=== PATIENT | female | born 1990 | race Asian ===

== ENCOUNTER 2019-09-13 05:26 | Inpatient (IN) ==
[2019-09-13] MEDS ORDERED: LACTATED RINGERS 1,000 ML IV SCH (06:00)
[2019-09-13 06:09] LABS: Basophils # 0.1 10*3/uL (0.0-0.2); Eosinophils # 0.1 10*3/uL (0.0-0.87); Hematocrit 39.7 VOL% (35.7-47.0); Hemoglobin 13.2 GM/DL (12.0-16.0); Immature Granulocytes % 8.4 %; Immature Granulocytes Absolute 0.73 #; Lymphocytes # 1.8 10*3/uL (1.4-4.0); Lymphocytes % 20.6 % (21.3-54.2); Mean Corpuscular HGB Conc 33.2 GM/DL (32-36); Mean Corpuscular Volume 92.5 FL (87-102); Monocytes % 5.8 % (1.7-12.7); Neutrophils % 63.2 % (38.7-73.9); Platelet Count 244 T/CUMM (130-400); Red Blood Count 4.29 MC/CUMM (3.8-5.5); White Blood Count 8.7 T/CUMM (4-12)
[2019-09-13 06:30] LABS: Albumin 2.6 G/DL (3.4-5.0); Bilirubin,Total 0.6 MG/DL (0.2-1.0); Calcium 8.9 MG/DL (8.5-10.1); Osmolality,Calculated 266.2 MOS/KG (273-304); Total Protein 7.1 G/DL (6.4-8.3)
[2019-09-13 06:32] LABS: Eosinophils 3 % (0-10); Lymphocytes 10 % (20-55); Platelet Estimate Adequate; Segmented Neutrophils 82 % (50-85); Total Cells Counted 100
[2019-09-13 06:33] LABS: Hypochromasia Slight
[2019-09-13] MEDS ORDERED: BUPIVACAINE SPINAL 0.75% 2 ML AMP SPINAL ONE (06:47)
[2019-09-13] MEDS ORDERED: BUPIVACAINE MPF 0.5% /EPI 30 ML VIAL ONE (06:47)
[2019-09-13] MEDS ORDERED: LACTATED RINGERS 1,000 ML IV ONE ×2 (06:48→07:15)
[2019-09-13] MEDS ORDERED: PHENYLEPHRINE 1 MG/10 ML SYRINGE IV ONE ×2 (06:48→09:07)
[2019-09-13] MEDS ORDERED: MORPHINE 10 MG/10 ML VIAL ONE (06:48)
[2019-09-13] MEDS ORDERED: METOCLOPRAMIDE 10 MG/2 ML VIAL ONE (06:48)
[2019-09-13] MEDS ORDERED: SODIUM CHLORIDE 0.9% 100 ML IV ONE (06:48)
[2019-09-13] MEDS ORDERED: ONDANSETRON 4 MG/2 ML VIAL ONE (06:48)
[2019-09-13] MEDS ORDERED: CITRIC ACID/SODIUM CITRATE 30 ML UDCUP PO ONE (07:00)
[2019-09-13] MEDS ORDERED: OXYTOCIN/LR 20 UNIT/1,000 ML BAG IV ONE ×3 (07:00→09:22)
[2019-09-13] MEDS ORDERED: FAMOTIDINE 20 MG/2 ML VIAL IV ONE (07:00)
[2019-09-13] MEDS ORDERED: ceFAZolin 2,000 MG in PREMIX 1 EACH IV ONE (07:00)
[2019-09-13] MEDS ORDERED: miSOPROStoL 200 MCG TABLET ONE (07:48)
[2019-09-13] MEDS ORDERED: TRANEXAMIC ACID 1,000 MG/10 ML VIAL ONE (07:48)
[2019-09-13] MEDS ORDERED: CARBOPROST TROMETHAMINE 250 MCG/ML AMP IM ONE (07:49)
[2019-09-13] MEDS ORDERED: METHYLERGONOVINE 0.2 MG/1 ML AMP ONE (07:49)
[2019-09-13 08:17] LABS: Cord Venous Blood HCO3 23.8 MMOL/L; Cord Venous Blood PCO2 46.1 MMHG; Cord Venous Blood PO2 33.6 MMHG
[2019-09-13 08:22] LABS: Apearance,Urine CLEAR (Clear); Bilirubin,Urine Negative (Negative); Blood, Urine Negative (Negative); Glucose,Urine (UA) Negative (Negative); Ketones,Urine 20 mg/dL (Negative); Mucus,Urine Occasional /LPF (Occasional); Nitrite,Urine Negative (Negative); Protein,Urine Negative; RBC,Urine 3 /HPF (0-4); Urine Color Yellow (Yellow); Urine Specific Gravity 1.014 (1.001-1.035); Urine Urobilinogen < 2.0 EU/DL (0.2-1.0); WBC,Urine <1 /HPF (0-6)
[2019-09-13] MEDS ORDERED: CALCIUM CHLORIDE 1,000 MG/10 ML VIAL IV ONE (09:06)
[2019-09-13] MEDS ORDERED: propofoL 200 MG/20 ML VIAL IV ONE (09:06)
[2019-09-13] MEDS ORDERED: ePHEDrine 50 MG/ML VIAL ONE (09:07)
[2019-09-13] MEDS ORDERED: LACTATED RINGERS 2,000 ML IV ONE (09:07)
[2019-09-13] MEDS ORDERED: BENZOCAINE 20%/MENTHOL 0.5% SPRAY 56 GM CAN TOP PRN (09:22)
[2019-09-13] MEDS ORDERED: HYDROCORTISONE 2.5% RECTAL CREAM 30 GM TUBE TOP PRN (09:22)
[2019-09-13] MEDS ORDERED: DIPH/TET/ACEL PERT BOOSTER VACCINE 0.5 ML VIAL IM ONE (09:22)
[2019-09-13] MEDS ORDERED: BISACODYL 10 MG SUPP RECTAL PRN (09:22)
[2019-09-13] MEDS ORDERED: ONDANSETRON 4 MG/2 ML VIAL IV PRN (09:22)
[2019-09-13] MEDS ORDERED: LANOLIN 50% CREAM 0.3 OZ TUBE TOP PRN (09:22)
[2019-09-13] MEDS ORDERED: RHO(D) IMMUNE GLOBULIN 300 MCG SYRINGE IM ONE (09:22)
[2019-09-13] MEDS ORDERED: WITCH HAZEL PADS 100/JAR TOP PRN (09:22)
[2019-09-13] MEDS ORDERED: oxyCODONE/ACETAMINOPHEN 5-325 MG TABLET PO PRN ×2 (09:22)
[2019-09-13] MEDS ORDERED: ACETAMINOPHEN 325 MG TABLET PO PRN (09:22)
[2019-09-13] MEDS ORDERED: MEASLES/MUMPS/RUBELLA VACCINE 0.5 ML VIAL SUBCUT ONE (09:22)
[2019-09-13] MEDS: ceFAZolin 1,000 MG in SYRINGE 1 EACH IV SCH ×2 (14:33→23:23)
[2019-09-13] MEDS: DOCUSATE SODIUM 100 MG CAPSULE PO SCH (20:24)
[2019-09-14] MEDS: IBUPROFEN 800 MG TABLET PO PRN ×3 (03:37→20:57)
[2019-09-14 06:43] LABS: Basophils % 0.3 % (0.0-0.8); Eosinophils % 0.4 % (0.00-10.9); Hemoglobin 9.7 GM/DL (12.0-16.0); Immature Granulocytes % 4.9 %; Immature Granulocytes Absolute 0.56 #; Lymphocytes # 1.7 10*3/uL (1.4-4.0); Lymphocytes % 14.9 % (21.3-54.2); Mean Corpuscular HGB Conc 32.3 GM/DL (32-36); Mean Corpuscular Volume 95.2 FL (87-102); Mean Platelet Volume 8.9 FL (9.6-12.0); Neutrophils % 73.5 % (38.7-73.9); Platelet Count 185 T/CUMM (130-400); Red Blood Count 3.15 MC/CUMM (3.8-5.5); Red Cell Distribution Width 13.8 % (9.3-17.3); White Blood Count 11.4 T/CUMM (4-12)
[2019-09-14 07:07] LABS: Band Neutrophils 7 % (0-10); Hypochromasia Slight; Lymphocytes 8 % (20-55); Microcytosis 1+; Platelet Estimate Adequate; Polychromasia Slight; Segmented Neutrophils 79 % (50-85); Total Cells Counted 100
[2019-09-14] MEDS: DOCUSATE SODIUM 100 MG CAPSULE PO SCH ×2 (09:56→20:56)
[2019-09-14] MEDS: SIMETHICONE CHEW 80 MG TABLET PO PRN ×2 (13:45→20:56)
[2019-09-14] MEDS: FERROUS SULFATE 325 MG TABLET PO SCH ×2 (15:25→20:57)
[2019-09-14] MEDS ORDERED: MAGNESIUM HYDROXIDE SUSP 30 ML UDCUP PO PRN (20:51)
[2019-09-15 07:37] VITALS: BP 98/56
[2019-09-15] MEDS: FERROUS SULFATE 325 MG TABLET PO SCH (08:52)
[2019-09-15] MEDS: DOCUSATE SODIUM 100 MG CAPSULE PO SCH (08:52)
== END 2019-09-15 14:40 | disposition home or self-care (01) | DRG 787 ==
LOC: N.LDOUT 05:26 → N.LD 05:29 → N.OB 11:22
PROVIDERS: ADMIT Specialist; ATTEND Specialist
PROC: LDCSECT (ICD-10-PCS; 2019-09-13 07:30)